=== PATIENT | female | born 1980 | race Caucasian/White ===

== ENCOUNTER 2019-09-12 07:04 | Inpatient (IN) | payer BC ==
[~2019-09-12] VITALS: Ht 154.9 cm; Wt 57.2 kg
[2019-09-12 07:09] VITALS: BP 138/96
[2019-09-12] MEDS ORDERED: NACL 0.9% 1,000 ML IV SCH ×2 (07:33→09:54)
[2019-09-12] MEDS ORDERED: ONDANSETRON 4 MG/2 ML VIAL IVP ONE ×2 (07:35→09:35)
[2019-09-12] MEDS ORDERED: FAMOTIDINE 20 MG/2 ML VIAL IVP ONE (07:35)
[2019-09-12] MEDS ORDERED: fentaNYL 0.05 MG/ML VIAL IVP ONE ×2 (07:55→08:40)
[2019-09-12 08:01] LABS: BASOPHILS % (AUTO) 0.6 % (0.0-2.0); EOSINOPHILS % (AUTO) 0.5 % (0.0-4.0); HEMATOCRIT 39.5 % (36-48); HEMOGLOBIN 13.1 g/dL (12.0-16.0); LYMPHOCYTES # (AUTO) 0.7 K/uL (2.5-16.5); LYMPHOCYTES % (AUTO) 14.2 % (20.5-51.1); MEAN CORPUSCULAR HEMOGLOBIN 30 pg (27-31); MEAN CORPUSCULAR HGB CONC 33 g/dL (33-37); MEAN CORPUSCULAR VOLUME 90.3 fL (80-94); MONOCYTES # (AUTO) 0.4 K/uL (0.8-1.0); MONOCYTES % (AUTO) 8.3 % (1.7-9.3); NEUTROPHILS # (AUTO) 3.9 K/uL (1.8-7.7); NEUTROPHILS % (AUTO) 76.4 % (42.2-75.2); PLATELET COUNT (AUTO) 240 K/uL (140-450); RED BLOOD CELL COUNT(AUTO) 4.38 MIL/uL (4.20-5.40); RED CELL DISTRIBUTION WIDTH 14.9 % (11.6-13.7); WHITE BLOOD COUNT (AUTO) 5.1 K/uL (4.8-10.8)
[2019-09-12 08:28] LABS: ANION GAP 16.3 (8-16); CARBON DIOXIDE 28.8 mmol/L (21-32); CREATININE 0.7 mg/dL (0.6-1.3); POTASSIUM 3.1 mmol/L (3.5-5.1); TOTAL BILIRUBIN 0.6 mg/dL (0.0-1.0)
[2019-09-12] MEDS ORDERED: ALUMINUM HYD/MAG/SIMETHICONE 30 ML UDC PO ONE (08:40)
[2019-09-12] MEDS ORDERED: LIDOCAINE VISCOUS 2% 20 ML UDC PO ONE (08:40)
[2019-09-12] MEDS ORDERED: NACL 0.9% 1,000 ML IV ONE (08:40)
[2019-09-12] MEDS ORDERED: ACETAMINOPHEN 325 MG TAB PO PRN (09:55)
[2019-09-12] MEDS ORDERED: MORPHINE SULFATE 2 MG/ML SYR IVP PRN (09:55)
[2019-09-12] MEDS ORDERED: ONDANSETRON 4 MG/2 ML VIAL IM/IVP PRN (09:55)
[2019-09-12] MEDS ORDERED: DOCUSATE SODIUM 100 MG GELCAP PO PRN (09:55)
[2019-09-12] MEDS ORDERED: HYDROcodone/APAP 5/325 MG 1 TAB TAB PO PRN (09:55)
[2019-09-12] MEDS: DEXT 5% /NACL 0.9% 1,000 ML IV SCH ×2 (10:30→20:30)
[2019-09-12 11:07] LABS: BARBITURATE, URINE NEG. ng/ml (NEG <=200); BENZODIAZEPINE, URINE NEG. ng/mL (NEG <=200); CANNABINOID, URINE NEG. ng/mL (NEG <=50); COCAINE, URINE NEG. ng/mL (NEG <=300); OPIATE, URINE NEG. ng/mL (NEG <=2000); PHENCYCLIDINE SCREEN,URINE NEG. ng/mL (NEG <=25)
[2019-09-12] MEDS ORDERED: TEMA30CA23 PO (11:26)
[2019-09-12] MEDS: METOCLOPRAMIDE 10 MG/2 ML INJ VIAL IVP PRN ×2 (11:26→21:39)
[2019-09-12] MEDS ORDERED: ALPR0.5T2 PO (11:28)
[2019-09-12 11:30] VITALS: BP 136/94
[2019-09-12] MEDS: LORazepam 2 MG/ML VIAL IVP PRN ×3 (11:51→22:00)
[2019-09-12] MEDS: PANTOPRAZOLE 40 MG INJ VIAL IVP SCH (11:58)
[2019-09-12] MEDS ORDERED: POTASSIUM CHLORIDE 40 MEQ, LIDOCAINE MPF 1% 25 MG in NACL 0.9% 250 ML IV SCH (12:00)
[2019-09-12 16:00] VITALS: BP 153/83
[2019-09-12 16:47] LABS: MAGNESIUM 1.6 mg/dL (1.8-2.4); PHOSPHORUS 3.4 mg/dL (2.5-4.9); THYROID STIMULATING HORMONE 1.89 uIU/mL (0.34-3.74)
[2019-09-12] MEDS ORDERED: TEMAZEPAM 15 MG CAP PO SCH (21:00)
[2019-09-12] MEDS ORDERED: CRUSHER, PILL MC ONE (21:53)
[2019-09-12] MEDS: amLODIPine 5 MG TAB PO SCH (21:58)
[2019-09-13] VITALS: BP 148/89
[2019-09-13] MEDS: DEXT 5% /NACL 0.9% 1,000 ML IV SCH (05:49)
[2019-09-13 06:07] LABS: T4 (THYROXINE) 8.5 ug/dL (4.5-12.0)
[2019-09-13 07:10] LABS: HEMATOCRIT 36.1 % (36-48); HEMOGLOBIN 11.8 g/dL (12.0-16.0); LYMPHOCYTES # (AUTO) 1.3 K/uL (2.5-16.5); MEAN CORPUSCULAR HEMOGLOBIN 30 pg (27-31); MEAN CORPUSCULAR HGB CONC 33 g/dL (33-37); MEAN CORPUSCULAR VOLUME 91.4 fL (80-94); MONOCYTES # (AUTO) 0.5 K/uL (0.8-1.0); MONOCYTES % (AUTO) 10.6 % (1.7-9.3); NEUTROPHILS # (AUTO) 2.7 K/uL (1.8-7.7); NEUTROPHILS % (AUTO) 59.4 % (42.2-75.2); PLATELET COUNT (AUTO) 220 K/uL (140-450); RED BLOOD CELL COUNT(AUTO) 3.95 MIL/uL (4.20-5.40); RED CELL DISTRIBUTION WIDTH 14.9 % (11.6-13.7); WHITE BLOOD COUNT (AUTO) 4.5 K/uL (4.8-10.8)
[2019-09-13 07:31] LABS: MAGNESIUM 1.7 mg/dL (1.8-2.4); PHOSPHORUS 3.3 mg/dL (2.5-4.9)
[2019-09-13 07:45] LABS: ANION GAP 14.9 (8-16); CARBON DIOXIDE 27.7 mmol/L (21-32); CREATININE 0.6 mg/dL (0.6-1.3); POTASSIUM 3.6 mmol/L (3.5-5.1)
[2019-09-13 08:00] VITALS: BP 161/99
[2019-09-13 08:11] LABS: CHOL/HDL RATIO 1.8 (1-4.5)
[2019-09-13] MEDS ORDERED: LORazepam 1 MG TAB PO PRN (08:20)
[2019-09-13] MEDS: PANTOPRAZOLE 40 MG INJ VIAL IVP SCH (09:51)
[2019-09-13 10:00] VITALS: BP 154/88
[2019-09-13] MEDS ORDERED: MULTIVITAMIN-12 10 ML, THIAMINE 100 MG, MAGNESIUM SULFATE 50% 2,000 MG, FOLIC ACID 1 MG... IV SCH ×5 (10:00)
[2019-09-13] MEDS: chlordiazePOXIDE 25 MG CAP PO SCH ×3 (10:04→18:25)
[2019-09-13] MEDS: LORazepam 1 MG TAB PO SCH ×2 (13:07→21:35)
[2019-09-13 16:00] VITALS: BP 152/91
[2019-09-13] MEDS: POTASSIUM CHL 20 MEQ/D5-1/2NS 1,000 ML IV SCH (16:05)
[2019-09-13] MEDS ORDERED: ZOLPIDEM 5 MG TAB PO PRN (16:05)
[2019-09-13] MEDS ORDERED: MAG SULF 2000 MG/WATER PREMIX 50 ML IV SCH (17:00)
[2019-09-13] MEDS ORDERED: AMITRIPTYLINE 25 MG TAB PO SCH (21:00)
[2019-09-13] MEDS: amLODIPine 5 MG TAB PO SCH (21:36)
[2019-09-14] VITALS: BP 130/73
[2019-09-14] MEDS: POTASSIUM CHL 20 MEQ/D5-1/2NS 1,000 ML IV SCH (01:05)
[2019-09-14] MEDS: LORazepam 1 MG TAB PO SCH ×2 (06:25→13:43)
[2019-09-14 06:47] LABS: BASOPHILS % (AUTO) 0.7 % (0.0-2.0); EOSINOPHILS # (AUTO) 0.1 K/uL (0-0.4); EOSINOPHILS % (AUTO) 2.4 % (0.0-4.0); HEMATOCRIT 35.8 % (36-48); HEMOGLOBIN 11.8 g/dL (12.0-16.0); LYMPHOCYTES # (AUTO) 1.7 K/uL (2.5-16.5); LYMPHOCYTES % (AUTO) 38.5 % (20.5-51.1); MEAN CORPUSCULAR HEMOGLOBIN 30 pg (27-31); MEAN CORPUSCULAR HGB CONC 33 g/dL (33-37); MEAN CORPUSCULAR VOLUME 91.8 fL (80-94); MONOCYTES # (AUTO) 0.4 K/uL (0.8-1.0); MONOCYTES % (AUTO) 9.9 % (1.7-9.3); NEUTROPHILS # (AUTO) 2.1 K/uL (1.8-7.7); NEUTROPHILS % (AUTO) 48.5 % (42.2-75.2); PLATELET COUNT (AUTO) 203 K/uL (140-450); RED CELL DISTRIBUTION WIDTH 14.7 % (11.6-13.7); WHITE BLOOD COUNT (AUTO) 4.3 K/uL (4.8-10.8)
[2019-09-14 07:07] LABS: ANION GAP 11.4 (8-16); CARBON DIOXIDE 26.8 mmol/L (21-32); CREATININE 0.7 mg/dL (0.6-1.3); POTASSIUM 3.2 mmol/L (3.5-5.1)
[2019-09-14 07:14] LABS: PHOSPHORUS 3.5 mg/dL (2.5-4.9)
[2019-09-14 08:00] VITALS: BP 125/93
[2019-09-14] MEDS ORDERED: ELA25 PO (08:40)
[2019-09-14] MEDS: chlordiazePOXIDE 25 MG CAP PO SCH ×3 (09:55→16:35)
[2019-09-14] MEDS: PANTOPRAZOLE 40 MG INJ VIAL IVP SCH (09:56)
[2019-09-14] MEDS ORDERED: POTASSIUM CHLORIDE 10 MEQ TABER PO SCH (14:00)
== END 2019-09-14 17:20 | disposition home or self-care (01) | DRG 392 ==
LOC: MED 07:04 → MMU 10:01
PROVIDERS: ADMIT General Practice; ATTEND General Practice
DX: K29.20 Alcoholic gastritis without bleeding (principal); R11.15 Cyclical vomiting syndrome unrelated to migraine; E86.0 Dehydration; G47.00 Insomnia, unspecified; Z88.8 Allergy status to other drugs, medicaments and biological substances; E87.6 Hypokalemia; E87.8 Other disorders of electrolyte and fluid balance, not elsewhere classified; F41.8 Other specified anxiety disorders; J84.10 Pulmonary fibrosis, unspecified; F10.10 Alcohol abuse, uncomplicated; E83.42 Hypomagnesemia; Y90.9 Presence of alcohol in blood, level not specified
CPT/HCPCS: 36415; 71045; 80048; 80053; 80305; 83036; 83690; 83735; 83880; 84100; 84436; 84443; 85025; 87081; 96361; 96374; 96375; 96376; 99285; A9153; C9113; J1644; J2001; J2060; J2405; J2765; J3010; J3411; J3475; J3480; J3490; J7030; J7042; J7060; Q0092

== ENCOUNTER 2019-12-15 21:09 | Emergency (ER) | payer BC ==
[~2019-12-15] VITALS: Ht 154.9 cm; Wt 59.9 kg
[~2019-12-15 21:09] MED LIST: ALPR0.5T2 PO; ELA25 PO; TEMA30CA23 PO
[2019-12-15 21:30] VITALS: BP 150/93
--- NOTE | 2019-12-15 21:33 | NUR ---
PT AMBULATED TO LOBBY TO A/W BED. VSS
--- NOTE | 2019-12-15 22:01 | NUR ---
PT TAKEN TO BED 7
--- NOTE | 2019-12-15 22:11 | NUR ---
39 YO F BIB SELF FOR C/C OF "VOMITING NON STOP FOR 7 HOURS" AFTER EATING A VEGGIE BOWL FROM [employer] [address]. PT STATES SHE HAS TAKEN 4 4MG ZOFRAN TABS WITHOUT RELIEF OF SYMPTOMS. PT STATES SHE HAS PAIN IN [place]. DENIES FEVER, SOB, COUGH, AND TRAVEL. BED LOCKED AND IN LOWEST POSITION. SIDE RAILS X1. ALLERGIES TO TRAMADOL MED HX: ANXIETY NO RX
[2019-12-15] MEDS ORDERED: ONDANSETRON 4 MG/2 ML VIAL IVP ONE (23:00)
[2019-12-15] MEDS ORDERED: NACL 0.9% 1,000 ML IV ONE (23:00)
--- NOTE | 2019-12-15 23:02 | NUR ---
Dr. Brantley examining patient.
[2019-12-15] MEDS ORDERED: KETOROLAC 30 MG/ML VIAL IVP ONE (23:10)
[2019-12-15] MEDS ORDERED: METOCLOPRAMIDE 10 MG/2 ML INJ VIAL IM ONE (23:10)
[2019-12-15 23:22] LABS: BASOPHILS % (AUTO) 0.5 % (0.0-2.0); EOSINOPHILS # (AUTO) 0.1 K/uL (0-0.4); HEMATOCRIT 43.3 % (36-48); HEMOGLOBIN 14.1 g/dL (12.0-16.0); LYMPHOCYTES # (AUTO) 2.4 K/uL (2.5-16.5); LYMPHOCYTES % (AUTO) 26.9 % (20.5-51.1); MEAN CORPUSCULAR HEMOGLOBIN 30 pg (27-31); MEAN CORPUSCULAR HGB CONC 33 g/dL (33-37); MEAN CORPUSCULAR VOLUME 93.2 fL (80-94); MONOCYTES # (AUTO) 0.8 K/uL (0.8-1.0); MONOCYTES % (AUTO) 8.8 % (1.7-9.3); NEUTROPHILS # (AUTO) 5.5 K/uL (1.8-7.7); NEUTROPHILS % (AUTO) 62.8 % (42.2-75.2); PLATELET COUNT (AUTO) 334 K/uL (140-450); RED BLOOD CELL COUNT(AUTO) 4.64 MIL/uL (4.20-5.40); RED CELL DISTRIBUTION WIDTH 14.7 % (11.6-13.7); WHITE BLOOD COUNT (AUTO) 8.8 K/uL (4.8-10.8)
[2019-12-15 23:38] LABS: ALBUMIN 4.5 g/dL (3.4-5.0); ANION GAP 14.6 (8-16); CARBON DIOXIDE 31.1 mmol/L (21-32); CREATININE 0.7 mg/dL (0.6-1.3); POTASSIUM 3.7 mmol/L (3.5-5.1); TOTAL BILIRUBIN 0.4 mg/dL (0.0-1.0)
--- NOTE | 2019-12-16 | NUR ---
PT STATES HER PAIN AND NAUSEA HAS RESOLVED POST CATH LAB RADIOLOGICAL TECHNOLOGIST
[2019-12-16 00:30] VITALS: BP 148/89
--- NOTE | 2019-12-16 00:30 | NUR ---
Patient discharged with v/s stable. Written and verbal after care instructions given and explained. Patient verbalized understanding. Ambulatory with steady gait. All questions addressed prior to discharge. Advised to follow up with PMD.
== END 2019-12-16 00:30 | disposition home or self-care (01) ==
LOC: MED 21:09
DX: A05.9 Bacterial foodborne intoxication, unspecified (principal); R11.2 Nausea with vomiting, unspecified; Z88.5 Allergy status to narcotic agent; Z79.899 Other long term (current) drug therapy
CPT/HCPCS: 36415; 80053; 81002; 81025; 85025; 96361; 96374; 96375; 99284; J1885; J2765; J7030; J2405

== ENCOUNTER 2021-08-22 12:49 | Emergency (ER) | payer BC, OTHER ==
[~2021-08-22] VITALS: Ht 154.9 cm; Wt 61.2 kg
[~2021-08-22 12:49] MED LIST changes: +AMIT25TA39 PO; -ELA25 PO
[2021-08-22 13:00] VITALS: BP 150/96
[2021-08-22] MEDS: DICYCLOMINE HCL LIQUID 20 MG, ALUMINUM HYD/MAG/SIMETHICONE 30 ML, LIDOCAINE VISCOUS 2% ... PO ONE ×6 (13:45→15:37)
[2021-08-22] MEDS ORDERED: ONDANSETRON 4 MG ODT PO ONE ×2 (13:45→15:15)
[2021-08-22 14:48] LABS: BASOPHILS # (AUTO) 0.1 K/uL (0.00-0.22); BASOPHILS % (AUTO) 0.8 % (0.0-2.0); EOSINOPHILS % (AUTO) 0.5 % (0.0-4.0); HEMATOCRIT 41.6 % (36-48); HEMOGLOBIN 13.9 g/dL (12.0-16.0); LYMPHOCYTES # (AUTO) 1.6 K/uL (2.5-16.5); MEAN CORPUSCULAR HEMOGLOBIN 30 pg (27-31); MEAN CORPUSCULAR HGB CONC 33 g/dL (33-37); MEAN CORPUSCULAR VOLUME 88.7 fL (80-94); MONOCYTES # (AUTO) 0.7 K/uL (0.8-1.0); MONOCYTES % (AUTO) 10.8 % (1.7-9.3); NEUTROPHILS # (AUTO) 4.2 K/uL (1.8-7.7); NEUTROPHILS % (AUTO) 63.9 % (42.2-75.2); PLATELET COUNT (AUTO) 396 K/uL (140-450); RED CELL DISTRIBUTION WIDTH 17.2 % (11.6-13.7); WHITE BLOOD COUNT (AUTO) 6.5 K/uL (4.8-10.8)
[2021-08-22 15:10] LABS: ALBUMIN 4.6 g/dL (3.4-5.0); ANION GAP 14.6 (8-16); CARBON DIOXIDE 25.9 mmol/L (21-32); CREATININE 0.7 mg/dL (0.6-1.3); POTASSIUM 3.5 mmol/L (3.5-5.1); TOTAL BILIRUBIN 0.6 mg/dL (0.0-1.0)
[2021-08-22] MEDS ORDERED: DICYCLOMINE HCL LIQUID 10 MG/5 ML UDC PO ONE (15:15)
[2021-08-22] MEDS ORDERED: COM25S RC (16:20)
[2021-08-22] MEDS ORDERED: METO-486 PO (16:20)
== END 2021-08-22 17:00 | disposition home or self-care (01) ==
LOC: MED 12:49
DX: R11.2 Nausea with vomiting, unspecified (principal); R42 Dizziness and giddiness; R10.13 Epigastric pain; Z79.899 Other long term (current) drug therapy; Z88.6 Allergy status to analgesic agent; Z88.5 Allergy status to narcotic agent
CPT/HCPCS: 36415; 80053; 83690; 84443; 85025; 99283; Q0162